=== PATIENT | male | born 2000 | race Two or more races ===

== ENCOUNTER 2019-01-21 12:54 | Emergency (ER) | payer SELFPAY ==
[~2019-01-21] VITALS: Ht 182.9 cm; Wt 94.0 kg
[2019-01-21] MEDS ORDERED: ACETAMINOPHEN 500MG TABLET PO ONE (15:00)
[2019-01-21 15:27] VITALS: BP 132/84
== END 2019-01-21 15:27 | disposition home or self-care (01) ==
LOC: ER 12:54
DX: H66.91 Otitis media, unspecified, right ear (principal); F17.200 Nicotine dependence, unspecified, uncomplicated
CPT/HCPCS: 99283